=== PATIENT | male | born 1990 | race Caucasian/White ===

== ENCOUNTER 2016-09-23 13:33 | Emergency (ER) | payer OTHER, MEDICAID ==
[2016-09-23] MEDS ORDERED: BUPIVACAINE 0.5% PF 30 ML VIAL SUBQ STA (14:05)
[2016-09-23] MEDS ORDERED: TETANUS/DIPHTHERIA/PERTUSSIS 0.5 ML SYRINGE IM ONE ×2 (14:10→14:16)
[2016-09-23] MEDS ORDERED: BUPIVACAINE 0.5% PF 30 ML VIAL ONE (14:10)
--- NOTE | 2016-09-23 14:13 | ED Physician Documentation ---
History of Present Illness - Stated complaint Stated Complaint: HAND LAC - Chief complaint Chief Complaint: Ext Problem - Additonal information Additional information: hx from pt and friend/family lacerated tip 3rd finger L hand on weed whacker Review of Systems Skin: reports: Laceration (s) PD PAST MEDICAL HISTORY - Past Medical History Cardiovascular: None Respiratory: None Neuro: None Endocrine/Autoimmune: None Psych: None Musculoskeletal: None Other Past Medical History: autism spectrum - Past Surgical History Past Surgical History: No - Present Medications Home Medications: Ambulatory Orders Medication Instructions Recorded Confirmed Cephalexin [Keflex] 500 mg PO Q6H #28 capsule 09/23/16 - Allergies Allergies/Adverse Reactions: Allergies Allergy/AdvReac Type Severity Reaction Status Date / Time acetaminophen [From Vicodin] Allergy Unknown Verified 09/23/16 13:39 hydrocodone bitartrate * Allergy Unknown Verified 09/23/16 13:39 [From Vicodin] - Social History Does the pt smoke?: No Smoking Status: Never smoker Does the pt drink ETOH?: No Does the pt have substance abuse?: No - Immunizations Immunizations: TDAP >10years/unknown PD ED PE NORMAL - Vitals Vital signs reviewed: Yes - Extremities Extremities: Other (distal phalange 3rd finger L hand swollen tender with macerated lac to tip) Results - Vitals Vitals: Vital Signs - 24 hr 09/23/16 13:36 Temperature 36.8 C Heart Rate 73 Respiratory 26 H Rate Blood Pressure 140/90 H O2 Saturation 99 Oxygen O2 Source Room air - Rads (name of study) finger Radiology: See rad report (no fx) Procedures - Laceration (location) 3rd L finger Length in cm: 2.5 Wound type: Irregular, Other (ribbons of tissue) Wound Preparation: Irrigated copiously NS (by tech), Wound explored, To the base. No: FB identified Skin layer closure: Dermabond, Other (too tattered to suture) Complexity: Simple Departure - Departure Disposition: 01 Home, Self Care Clinical Impression: Finger laceration Qualifiers: Encounter type: initial encounter Qualified Code(s): S61.219A - Laceration without foreign body of unspecified finger without damage to nail, initial encounter Condition: Good Instructions: ED Laceration Hand Follow-Up: Kojo Lee MD [Primary Care Provider] - Prescriptions: Cephalexin [Keflex] 500 mg PO Q6H #28 capsule Comments: The glue will gradually flake off over about 2 weeks Motrin as needed for the pain This wound is at risk for infection We irrigated it very well and I prescribed prophylactic antibiotics - but there is still a risk for infection when cut by gardening equipment. Please return to the ER or see your PMD for any signs of developing infection such as increased redness, swelling, pain, discharge, streaking Please follow up with your PMD about your blood pressure - it was high today
[2016-09-23] MEDS ORDERED: LIDOCAINE-EPINEPH-TETRACAINE 3 ML SYRINGE TOP ONE (15:06)
--- NOTE | 2016-09-23 15:17 | XRAY Preliminary Report ---
Exam: XR Finger(s) LT IMPRESSION: No bony abnormality. [facility] SITE ID: [id number]
[2016-09-23] MEDS ORDERED: LIDOCAINE-EPINEPH-TETRACAINE 3 ML SYRINGE TOP STA (15:23)
--- NOTE | 2016-09-23 15:24 | XRAY Report ---
EXAM: LEFT THIRD DIGIT RADIOGRAPHY EXAM DATE: 09/23/2016 03:07 PM. CLINICAL HISTORY: Rufus jordan injury. COMPARISON: None. TECHNIQUE: 3 views. FINDINGS: Bones: Normal. No fracture or bone lesion. Joints: Normal. No subluxations. Soft Tissues: Laceration and edema lateral aspect tip of the finger. No radiopaque foreign body. IMPRESSION: No bony abnormality. [facility] Referring Provider Line: [phone] SITE ID: [id number]
[2016-09-23 16:17] VITALS: BP 137/70
== END 2016-09-23 16:16 | disposition home or self-care (01) ==
LOC: ED 13:33
DX: S61.213A Laceration without foreign body of left middle finger without damage to nail, initial encounter (principal); W20.8XXA Other cause of strike by thrown, projected or falling object, initial encounter; F84.0 Autistic disorder; Z23 Encounter for immunization
CPT/HCPCS: 12001; 73140; 90471; 99283

== ENCOUNTER 2018-09-24 10:40 | Outpatient (CLI) | payer OTHER, MEDICAID ==
--- NOTE | 2018-09-24 15:04 | XRAY Report ---
Reason: KNEE PAIN,RIGHT Procedure Date: 09/24/2018 Accession Number: [id number] / [id number] Procedure: WCP - Knee 2 View RT CPT Code: FULL RESULT: EXAM: RIGHT KNEE RADIOGRAPHY EXAM DATE: 09/24/2018 10:53 AM. CLINICAL HISTORY: KNEE PAIN,RIGHT. COMPARISON: None. TECHNIQUE: 2 views. FINDINGS: Bones: Normal. No fractures or bone lesions. Joints: Normal. No effusion. No subluxations. Soft Tissues: Normal. No soft tissue swelling. IMPRESSION: Normal knee radiography. [facility]
== END 2018-09-24 10:41 | disposition home or self-care (01) ==
LOC: DI.WCP 10:40
PROVIDERS: ATTEND Physician Assistant Medical
DX: M25.561 Pain in right knee (principal)

== ENCOUNTER 2022-08-31 09:47 | Emergency (ER) | payer MEDICAID, OTHER ==
[2022-08-31] MEDS ORDERED: CIPROFLOXACIN 250 MG TABLET PO STA (10:17)
--- OUTSIDE RECORDS SUMMARY | 2022-08-31 10:17 | EXTERNAL MEDICAL SUMMARY RPT | Continuity of Care Document ---
:1990 Author Organization [facility] Address [address] [place] [address] Phone Care Team Providers Name Role Phone Pete Esparza Unavailable Unavailable Allergies No information. Encounters No information. Functional Status No information. Immunizations No information. Medications No information. Problems date description facility 2022-06-19 00:00 Left knee pain [facility] Procedures No information. Results/Labs test date author facility value unit interpret ation Result panel 1 (unknown) (no (unknown) (unknown) (no value) (units (unk nown) date) unknown) (unknown) (no (unknown) (unknown) 06/19/22 (units (unkno wn) date) unknown) (unknown) (no (unknown) (unknown) 31yo man with (units ( unknown) date) severe learning unknown) disability presents with his father to for (unknown) (no (unknown) (unknown) Abdomen: Normal (units (unknown) date) bowel sounds, no unknown) tenderness, guarding, or rebound. No masses (unknown) (no (unknown) (unknown) Age/Sex: 31 / M (units (unknown) date) Date of Service: unknown) (unknown) (no (unknown) (unknown) Alert and (units (unkn own) date) oriented x3, well unknown) groomed, well nourished (unknown) (no (unknown) (unknown) Allergies (units (unkn own) date) unknown) (unknown) (no (unknown) (unknown) [place] (units ( unknown) date) [id number] unknown) (unknown) (no (unknown) (unknown) Attending Dr: (units ( unknown) date) Pete Esparza D.O. unknown) (unknown) (no (unknown) (unknown) BMI (units (unkno wn) date) 36.0-36.9,adult unknown) (unknown) (no (unknown) (unknown) Back pain (units (unkn own) date) unknown) (unknown) (no (unknown) (unknown) Brother Diabetes (units (unknown) date) mellitus unknown) (unknown) (no (unknown) (unknown) Cardio: Heart (units ( unknown) date) has regular rate unknown) and rhythm, no clicks, murmurs, rubs, or gallops (unknown) (no (unknown) (unknown) Chief Complaint (units (unknown) date) unknown) (unknown) (no (unknown) (unknown) Chief Complaint: (units (unknown) date) Physical exam unknown) (unknown) (no (unknown) (unknown) : 1990 (units (unknown) date) Acct:[id number] unknown) (unknown) (no (unknown) (unknown) Dept at (units (unkno wn) date) . unknown) (unknown) (no (unknown) (unknown) Details: (units (unkno wn) date) unknown) (unknown) (no (unknown) (unknown) Documented By: (units (unknown) date) Pete Esparza D.O. unknown) 06/19/22 0831 (unknown) (no (unknown) (unknown) Draft (units (unkno wn) date) unknown) (unknown) (no (unknown) (unknown) Ears: TMs pearly (units (unknown) date) and translucent unknown) with normal cone of light (unknown) (no (unknown) (unknown) Exam Narrative (units (unknown) date) unknown) (unknown) (no (unknown) (unknown) Exam Narrative: (units (unknown) date) unknown) (unknown) (no (unknown) (unknown) Exam (units (unkno wn) date) unknown) (unknown) (no (unknown) (unknown) Extremities: No (units (unknown) date) peripheral edema, unknown) no cyanosis or clubbing. (unknown) (no (unknown) (unknown) Eyes: PERRL, (units (u nknown) date) EOMI unknown) (unknown) (no (unknown) (unknown) Family History (units (unknown) date) (Reviewed unknown) 04/17/22 @ 00:02 by Ro Crespo MD) (unknown) (no (unknown) (unknown) Family Practice (units (unknown) date) Office Visit unknown) (unknown) (no (unknown) (unknown) [facility] ([facility] unknown) (unknown) (no (unknown) (unknown) Grandfather (units (un known) date) Diabetes mellitus unknown) (unknown) (no (unknown) (unknown) Grandmother (units (un known) date) Diabetes mellitus unknown) (unknown) (no (unknown) (unknown) HPI (units (unkno wn) date) unknown) (unknown) (no (unknown) (unknown) Head: NC/AT, (units (u nknown) date) unknown) (unknown) (no (unknown) (unknown) Healthy adult (units ( unknown) date) unknown) (unknown) (no (unknown) (unknown) Intake (units (unkno wn) date) unknown) (unknown) (no (unknown) (unknown) Knee pain, right (units (unknown) date) unknown) (unknown) (no (unknown) (unknown) Learning (units (unkno wn) date) disability unknown) (unknown) (no (unknown) (unknown) Loc: [facility] (units (unkno wn) date) unknown) (unknown) (no (unknown) (unknown) [id number] (units (unk nown) date) unknown) (unknown) (no (unknown) (unknown) Medical History (units (unknown) date) unknown) (unknown) (no (unknown) (unknown) Neck: Supple, no (units (unknown) date) lymphadenopathy, unknown) thyroid normal (unknown) (no (unknown) (unknown) No Known Drug (units ( unknown) date) Allergies Allergy unknown) (Verified 04/16/22 19:54) (unknown) (no (unknown) (unknown) Oropharynx: oral (units (unknown) date) mucosa pink and unknown) moist, structures are symmetrical (unknown) (no (unknown) (unknown) PFSH (units (unkno wn) date) unknown) (unknown) (no (unknown) (unknown) Patient: (units (unkno wn) date) Ravi Freedman unknown) A MR#: (unknown) (no (unknown) (unknown) Reason For Visit (units (unknown) date) unknown) (unknown) (no (unknown) (unknown) Resp: Lungs (units (un known) date) clear to unknown) auscultation bilaterally (unknown) (no (unknown) (unknown) Ravi has (units (un known) date) little sense of unknown) time and thinks they sometimes eat at midnight but (unknown) (no (unknown) (unknown) Signed By: (units (unk nown) date) unknown) (unknown) (no (unknown) (unknown) Skin: No (units (unkno wn) date) concerning unknown) rashes, lesions, or nevi noted on sun-exposed areas (unknown) (no (unknown) (unknown) Smoking Status: (units (unknown) date) Never smoker unknown) (unknown) (no (unknown) (unknown) This note may (units ( unknown) date) have been all or unknown) partially generated using voice recognition (unknown) (no (unknown) (unknown) Tobacco + (units (unkn own) date) Substance Use unknown) (unknown) (no (unknown) (unknown) Tobacco Status (units (unknown) date) unknown) (unknown) (no (unknown) (unknown) Visit Reasons: (units (unknown) date) Physical unknown) (unknown) (no (unknown) (unknown) alcohol intake: (units (unknown) date) never unknown) (unknown) (no (unknown) (unknown) father knows he (units (unknown) date) thinks this unknown) because Ravi thinks that anything after dark is (unknown) (no (unknown) (unknown) have occurred. (units (unknown) date) If there are any unknown) questions, please contact the Medical Records (unknown) (no (unknown) (unknown) him from doing (units (unknown) date) this. He knows is unknown) posture is very. The mother just a few (unknown) (no (unknown) (unknown) loss. He is very (units (unknown) date) dependent on his unknown) father for all arrangements of life, but can (unknown) (no (unknown) (unknown) may occur. (units (unk nown) date) Occasional unknown) wrong-word or 'sound-alike' substitutions may have (unknown) (no (unknown) (unknown) midnight. (units (unkn own) date) Ravi does like unknown) to walk in his back pain and knee pain do not keep (unknown) (no (unknown) (unknown) occurred due to (units (unknown) date) the inherent unknown) limitations of voice recognition software. Please (unknown) (no (unknown) (unknown) or (units (unkno wn) date) hepatosplenomegal unknown) y. (unknown) (no (unknown) (unknown) perform simple (units (unknown) date) ADLs for himself. unknown) His father says he is not eating well. (unknown) (no (unknown) (unknown) physical exam (units ( unknown) date) with concern unknown) today for back pain, right knee pain, and weight (unknown) (no (unknown) (unknown) read the note (units ( unknown) date) carefully and unknown) recognize, using context, where these substitutions (unknown) (no (unknown) (unknown) software. (units (unkn own) date) Although every unknown) effort is made to edit content, job putter up and ticket preparer errors (unknown) (no (unknown) (unknown) substance use (units ( unknown) date) type: does not unknown) use (unknown) (no (unknown) (unknown) weeks ago what (units (unknown) date) sounds like unknown) complications of obesity but the story is not clear. Result panel 2 (unknown) (no (unknown) (unknown) (no value) (units (unk nown) date) unknown) (unknown) (no (unknown) (unknown) 06/19/22 (units (unkno wn) date) unknown) (unknown) (no (unknown) (unknown) 31 yo male (units (unk nown) date) presents for unknown) annual physical. (unknown) (no (unknown) (unknown) 31yo man with (units ( unknown) date) severe learning unknown) disability presents with his father to for (unknown) (no (unknown) (unknown) Abdomen: Normal (units (unknown) date) bowel sounds, no unknown) tenderness, guarding, or rebound. No masses (unknown) (no (unknown) (unknown) Age/Sex: 31 / M (units (unknown) date) Date of Service: unknown) (unknown) (no (unknown) (unknown) Alert and (units (unkn own) date) oriented x3, well unknown) groomed, well nourished (unknown) (no (unknown) (unknown) Allergies (units (unkn own) date) unknown) (unknown) (no (unknown) (unknown) [place], [place] (units ( unknown) date) [id number] unknown) (unknown) (no (unknown) (unknown) Attending Dr: (units ( unknown) date) Pete Esparza D.O. unknown) (unknown) (no (unknown) (unknown) BMI (units (unkno wn) date) 36.0-36.9,adult unknown) (unknown) (no (unknown) (unknown) Back pain (units (unkn own) date) unknown) (unknown) (no (unknown) (unknown) Brother Diabetes (units (unknown) date) mellitus unknown) (unknown) (no (unknown) (unknown) Cardio: Heart (units ( unknown) date) has regular rate unknown) and rhythm, no clicks, murmurs, rubs, or gallops (unknown) (no (unknown) (unknown) Chief Complaint (units (unknown) date) unknown) (unknown) (no (unknown) (unknown) Chief Complaint: (units (unknown) date) Physical exam unknown) (unknown) (no (unknown) (unknown) : 1990 (units (unknown) date) Acct:[id number] unknown) (unknown) (no (unknown) (unknown) Dept at (units (unkno wn) date) . unknown) (unknown) (no (unknown) (unknown) Details: (units (unkno wn) date) unknown) (unknown) (no (unknown) (unknown) Documented By: (units (unknown) date) Pete Esparza D.O. unknown) 06/19/22 0831 (unknown) (no (unknown) (unknown) Draft (units (unkno wn) date) unknown) (unknown) (no (unknown) (unknown) Ears: TMs pearly (units (unknown) date) and translucent unknown) with normal cone of light (unknown) (no (unknown) (unknown) Exam Narrative (units (unknown) date) unknown) (unknown) (no (unknown) (unknown) Exam Narrative: (units (unknown) date) unknown) (unknown) (no (unknown) (unknown) Exam (units (unkno wn) date) unknown) (unknown) (no (unknown) (unknown) Extremities: No (units (unknown) date) peripheral edema, unknown) no cyanosis or clubbing. (unknown) (no (unknown) (unknown) Eyes: PERRL, (units (u nknown) date) EOMI unknown) (unknown) (no (unknown) (unknown) Family History (units (unknown) date) (Reviewed unknown) 04/17/22 @ 00:02 by Ro Crespo MD) (unknown) (no (unknown) (unknown) Family Practice (units (unknown) date) Office Visit unknown) (unknown) (no (unknown) (unknown) [facility] ([facility] unknown) (unknown) (no (unknown) (unknown) Grandfather (units (un known) date) Diabetes mellitus unknown) (unknown) (no (unknown) (unknown) Grandmother (units (un known) date) Diabetes mellitus unknown) (unknown) (no (unknown) (unknown) HPI (units (unkno wn) date) unknown) (unknown) (no (unknown) (unknown) Head: NC/AT, (units (u nknown) date) unknown) (unknown) (no (unknown) (unknown) Health (units (unkno wn) date) Management unknown) reviewed with patient: Yes (unknown) (no (unknown) (unknown) Health (units (unkno wn) date) Management unknown) (unknown) (no (unknown) (unknown) Healthy adult (units ( unknown) date) unknown) (unknown) (no (unknown) (unknown) Intake Note: (units (u nknown) date) unknown) (unknown) (no (unknown) (unknown) Intake performed (units (unknown) date) by: unknown) Juan De Jesus (unknown) (no (unknown) (unknown) Intake (units (unkno wn) date) unknown) (unknown) (no (unknown) (unknown) Intake- Clincial (units (unknown) date) Staff unknown) (unknown) (no (unknown) (unknown) Knee pain, right (units (unknown) date) unknown) (unknown) (no (unknown) (unknown) Learning (units (unkno wn) date) disability unknown) (unknown) (no (unknown) (unknown) Loc: [facility] (units (unkno wn) date) unknown) (unknown) (no (unknown) (unknown) [id number] (units (unk nown) date) unknown) (unknown) (no (unknown) (unknown) Medical History (units (unknown) date) unknown) (unknown) (no (unknown) (unknown) Neck: Supple, no (units (unknown) date) lymphadenopathy, unknown) thyroid normal (unknown) (no (unknown) (unknown) No Known Drug (units ( unknown) date) Allergies Allergy unknown) (Verified 06/19/22 08:45) (unknown) (no (unknown) (unknown) Oropharynx: oral (units (unknown) date) mucosa pink and unknown) moist, structures are symmetrical (unknown) (no (unknown) (unknown) PFSH (units (unkno wn) date) unknown) (unknown) (no (unknown) (unknown) Patient: (units (unkno wn) date) Ravi Freedman unknown) A MR#: (unknown) (no (unknown) (unknown) Reason For Visit (units (unknown) date) unknown) (unknown) (no (unknown) (unknown) Resp: Lungs (units (un known) date) clear to unknown) auscultation bilaterally (unknown) (no (unknown) (unknown) Ravi has (units (un known) date) little sense of unknown) time and thinks they sometimes eat at midnight but (unknown) (no (unknown) (unknown) Signed By: (units (unk nown) date) unknown) (unknown) (no (unknown) (unknown) Skin: No (units (unkno wn) date) concerning unknown) rashes, lesions, or nevi noted on sun-exposed areas (unknown) (no (unknown) (unknown) Smoking Status: (units (unknown) date) Never smoker unknown) (unknown) (no (unknown) (unknown) This note may (units ( unknown) date) have been all or unknown) partially generated using voice recognition (unknown) (no (unknown) (unknown) Tobacco + (units (unkn own) date) Substance Use unknown) (unknown) (no (unknown) (unknown) Tobacco Status (units (unknown) date) unknown) (unknown) (no (unknown) (unknown) Visit Reasons: (units (unknown) date) Physical unknown) (unknown) (no (unknown) (unknown) alcohol intake: (units (unknown) date) never unknown) (unknown) (no (unknown) (unknown) father knows he (units (unknown) date) thinks this unknown) because Ravi thinks that anything after dark is (unknown) (no (unknown) (unknown) have occurred. (units (unknown) date) If there are any unknown) questions, please contact the Medical Records (unknown) (no (unknown) (unknown) him from doing (units (unknown) date) this. He knows is unknown) posture is very. The mother just a few (unknown) (no (unknown) (unknown) loss. He is very (units (unknown) date) dependent on his unknown) father for all arrangements of life, but can (unknown) (no (unknown) (unknown) may occur. (units (unk nown) date) Occasional unknown) wrong-word or 'sound-alike' substitutions may have (unknown) (no (unknown) (unknown) midnight. (units (unkn own) date) Ravi does like unknown) to walk in his back pain and knee pain do not keep (unknown) (no (unknown) (unknown) occurred due to (units (unknown) date) the inherent unknown) limitations of voice recognition software. Please (unknown) (no (unknown) (unknown) or (units (unkno wn) date) hepatosplenomegal unknown) y. (unknown) (no (unknown) (unknown) perform simple (units (unknown) date) ADLs for himself. unknown) His father says he is not eating well. (unknown) (no (unknown) (unknown) physical exam (units ( unknown) date) with concern unknown) today for back pain, right knee pain, and weight (unknown) (no (unknown) (unknown) read the note (units ( unknown) date) carefully and unknown) recognize, using context, where these substitutions (unknown) (no (unknown) (unknown) software. (units (unkn own) date) Although every unknown) effort is made to edit content, job putter up and ticket preparer errors (unknown) (no (unknown) (unknown) substance use (units ( unknown) date) type: does not unknown) use (unknown) (no (unknown) (unknown) weeks ago what (units (unknown) date) sounds like unknown) complications of obesity but the story is not clear. Result panel 3 (unknown) (no (unknown) (unknown) (no value) (units (unk nown) date) unknown) (unknown) (no (unknown) (unknown) 06/19/22 (units (unkno wn) date) unknown) (unknown) (no (unknown) (unknown) 08:51 (units (unkno wn) date) unknown) (unknown) (no (unknown) (unknown) 31 yo male (units (unk nown) date) presents for unknown) annual physical. (unknown) (no (unknown) (unknown) 31yo man with (units ( unknown) date) severe learning unknown) disability presents for physical exam for special (unknown) (no (unknown) (unknown) Abdomen: Normal (units (unknown) date) bowel sounds, no unknown) tenderness, guarding, or rebound. No masses (unknown) (no (unknown) (unknown) Age/Sex: 31 / M (units (unknown) date) Date of Service: unknown) (unknown) (no (unknown) (unknown) Alert and (units (unkn own) date) oriented x3, well unknown) groomed, well nourished (unknown) (no (unknown) (unknown) Allergies (units (unkn own) date) unknown) (unknown) (no (unknown) (unknown) [place], [place] (units ( unknown) date) [id number] unknown) (unknown) (no (unknown) (unknown) Attending Dr: (units ( unknown) date) Pete Esparza D.O. unknown) (unknown) (no (unknown) (unknown) BMI (units (unkno wn) date) 36.0-36.9,adult unknown) (unknown) (no (unknown) (unknown) BMI 42.3 (units (unkno wn) date) unknown) (unknown) (no (unknown) (unknown) BP 110/80 (units (unkn own) date) unknown) (unknown) (no (unknown) (unknown) Back pain (units (unkn own) date) unknown) (unknown) (no (unknown) (unknown) Blood Pressure (units (unknown) date) Location Lt unknown) brachial (unknown) (no (unknown) (unknown) Brother Diabetes (units (unknown) date) mellitus unknown) (unknown) (no (unknown) (unknown) Cardio: Heart (units ( unknown) date) has regular rate unknown) and rhythm, no clicks, murmurs, rubs, or gallops (unknown) (no (unknown) (unknown) Chief Complaint (units (unknown) date) unknown) (unknown) (no (unknown) (unknown) Chief Complaint: (units (unknown) date) Physical exam unknown) (unknown) (no (unknown) (unknown) : 1990 (units (unknown) date) Acct:[id number] unknown) (unknown) (no (unknown) (unknown) Dept at (units (unkno wn) date) . unknown) (unknown) (no (unknown) (unknown) Details: (units (unkno wn) date) unknown) (unknown) (no (unknown) (unknown) Documented By: (units (unknown) date) Pete Esparza D.O. unknown) 06/19/22 0831 (unknown) (no (unknown) (unknown) Draft (units (unkno wn) date) unknown) (unknown) (no (unknown) (unknown) Ears: TMs pearly (units (unknown) date) and translucent unknown) with normal cone of light (unknown) (no (unknown) (unknown) Exam Narrative (units (unknown) date) unknown) (unknown) (no (unknown) (unknown) Exam Narrative: (units (unknown) date) unknown) (unknown) (no (unknown) (unknown) Exam (units (unkno wn) date) unknown) (unknown) (no (unknown) (unknown) Extremities: No (units (unknown) date) peripheral edema, unknown) no cyanosis or clubbing. (unknown) (no (unknown) (unknown) Eyes: PERRL, (units (u nknown) date) EOMI unknown) (unknown) (no (unknown) (unknown) Family History (units (unknown) date) (Reviewed unknown) 04/17/22 @ 00:02 by Ro Crespo MD) (unknown) (no (unknown) (unknown) Family Practice (units (unknown) date) Office Visit unknown) (unknown) (no (unknown) (unknown) [facility]units ([facility] date[facility] unknown) (unknown) (no (unknown) (unknown) Grandfather (units (un known) date) Diabetes mellitus unknown) (unknown) (no (unknown) (unknown) Grandmother (units (un known) date) Diabetes mellitus unknown) (unknown) (no (unknown) (unknown) HPI (units (unkno wn) date) unknown) (unknown) (no (unknown) (unknown) Head: NC/AT, (units (u nknown) date) unknown) (unknown) (no (unknown) (unknown) Health (units (unkno wn) date) Management unknown) reviewed with patient: Yes (unknown) (no (unknown) (unknown) Health (units (unkno wn) date) Management unknown) (unknown) (no (unknown) (unknown) Healthy adult (units ( unknown) date) unknown) (unknown) (no (unknown) (unknown) Height 5 ft 11 (units (unknown) date) in unknown) (unknown) (no (unknown) (unknown) Intake Note: (units (u nknown) date) unknown) (unknown) (no (unknown) (unknown) Intake performed (units (unknown) date) by: unknown) Juan De Jesus (unknown) (no (unknown) (unknown) Intake (units (unkno wn) date) unknown) (unknown) (no (unknown) (unknown) Intake- Clincial (units (unknown) date) Staff unknown) (unknown) (no (unknown) (unknown) Knee pain, right (units (unknown) date) unknown) (unknown) (no (unknown) (unknown) Learning (units (unkno wn) date) disability unknown) (unknown) (no (unknown) (unknown) Loc: [facility] (units (unkno wn) date) unknown) (unknown) (no (unknown) (unknown) [id number] (units (unk nown) date) unknown) (unknown) (no (unknown) (unknown) Medical History (units (unknown) date) unknown) (unknown) (no (unknown) (unknown) Medications (units (un known) date) unknown) (unknown) (no (unknown) (unknown) Neck: Supple, no (units (unknown) date) lymphadenopathy, unknown) thyroid normal (unknown) (no (unknown) (unknown) No Known Drug (units ( unknown) date) Allergies Allergy unknown) (Verified 06/19/22 08:45) (unknown) (no (unknown) (unknown) No Known Home (units ( unknown) date) Medications unknown) 04/19/20 [History Confirmed 06/19/22] (unknown) (no (unknown) (unknown) Oropharynx: oral (units (unknown) date) mucosa pink and unknown) moist, structures are symmetrical (unknown) (no (unknown) (unknown) Oxygen Delivery (units (unknown) date) Method room air unknown) (unknown) (no (unknown) (unknown) PFSH (units (unkno wn) date) unknown) (unknown) (no (unknown) (unknown) Patient: (units (unkno wn) date) Ravi Freedman unknown) A MR#: (unknown) (no (unknown) (unknown) Position Sitting (units (unknown) date) unknown) (unknown) (no (unknown) (unknown) Pulse 84 (units (unkno wn) date) unknown) (unknown) (no (unknown) (unknown) Pulse Oximetry (units (unknown) date) (%) 97 unknown) (unknown) (no (unknown) (unknown) Pulse Source (units (u nknown) date) Monitor unknown) (unknown) (no (unknown) (unknown) Reason For Visit (units (unknown) date) unknown) (unknown) (no (unknown) (unknown) Resp: Lungs (units (un known) date) clear to unknown) auscultation bilaterally (unknown) (no (unknown) (unknown) Signed By: (units (unk nown) date) unknown) (unknown) (no (unknown) (unknown) Skin: No (units (unkno wn) date) concerning unknown) rashes, lesions, or nevi noted on sun-exposed areas (unknown) (no (unknown) (unknown) Smoking Status: (units (unknown) date) Never smoker unknown) (unknown) (no (unknown) (unknown) Temp 97.1 F L (units ( unknown) date) unknown) (unknown) (no (unknown) (unknown) Temp Source (units (un known) date) Temporal Artery unknown) Scan (unknown) (no (unknown) (unknown) This note may (units ( unknown) date) have been all or unknown) partially generated using voice recognition (unknown) (no (unknown) (unknown) Tobacco + (units (unkn own) date) Substance Use unknown) (unknown) (no (unknown) (unknown) Tobacco Status (units (unknown) date) unknown) (unknown) (no (unknown) (unknown) Visit Reasons: (units (unknown) date) Physical unknown) (unknown) (no (unknown) (unknown) Vitals (units (unkno wn) date) unknown) (unknown) (no (unknown) (unknown) Weight 303 lb 6 (units (unknown) date) oz unknown) (unknown) (no (unknown) (unknown) alcohol intake: (units (unknown) date) never unknown) (unknown) (no (unknown) (unknown) father for all (units ( unknown) date) arrangements of unknown) life, but can perform simple ADLs for himself and (unknown) (no (unknown) (unknown) have occurred. (units (unknown) date) If there are any unknown) questions, please contact the Medical Records (unknown) (no (unknown) (unknown) is living on his (units (unknown) date) own. Ravi does unknown) like to walk in his back pain and knee (unknown) (no (unknown) (unknown) may occur. (units (unk nown) date) Occasional unknown) wrong-word or 'sound-alike' substitutions may have (unknown) (no (unknown) (unknown) occurred due to (units (unknown) date) the inherent unknown) limitations of voice recognition software. Please (unknown) (no (unknown) (unknown) olympics with (units ( unknown) date) concern today for unknown) left knee pain. He is very dependent on his (unknown) (no (unknown) (unknown) or (units (unkno wn) date) hepatosplenomegal unknown) y. (unknown) (no (unknown) (unknown) pain do not keep (units (unknown) date) him from doing unknown) this. (unknown) (no (unknown) (unknown) read the note (units ( unknown) date) carefully and unknown) recognize, using context, where these substitutions (unknown) (no (unknown) (unknown) software. (units (unkn own) date) Although every unknown) effort is made to edit content, job putter up and ticket preparer errors (unknown) (no (unknown) (unknown) substance use (units ( unknown) date) type: does not unknown) use Result panel 4 (unknown) (no (unknown) (unknown) (no value) (units (unk nown) date) unknown) (unknown) (no (unknown) (unknown) 06/19/22 (units (unkno wn) date) unknown) (unknown) (no (unknown) (unknown) 08:51 (units (unkno wn) date) unknown) (unknown) (no (unknown) (unknown) 31 yo male (units (unk nown) date) presents for unknown) annual physical. (unknown) (no (unknown) (unknown) 31yo man with (units ( unknown) date) severe learning unknown) disability presents for physical exam for special (unknown) (no (unknown) (unknown) Abdomen: Normal (units (unknown) date) bowel sounds, no unknown) tenderness, guarding, or rebound. No masses (unknown) (no (unknown) (unknown) Age/Sex: 31 / M (units (unknown) date) Date of Service: unknown) (unknown) (no (unknown) (unknown) Alert and (units (unkn own) date) oriented x3, well unknown) groomed, well nourished (unknown) (no (unknown) (unknown) Allergies (units (unkn own) date) unknown) (unknown) (no (unknown) (unknown) [place], [place] (units ( unknown) date) [id number] unknown) (unknown) (no (unknown) (unknown) Attending Dr: (units ( unknown) date) Pete Esparza D.O. unknown) (unknown) (no (unknown) (unknown) BMI (units (unkno wn) date) 36.0-36.9,adult unknown) (unknown) (no (unknown) (unknown) BMI 42.3 (units (unkno wn) date) unknown) (unknown) (no (unknown) (unknown) BP 110/80 (units (unkn own) date) unknown) (unknown) (no (unknown) (unknown) Back pain (units (unkn own) date) unknown) (unknown) (no (unknown) (unknown) Blood Pressure (units (unknown) date) Location Lt unknown) brachial (unknown) (no (unknown) (unknown) Brother Diabetes (units (unknown) date) mellitus unknown) (unknown) (no (unknown) (unknown) Cardio: Heart (units ( unknown) date) has regular rate unknown) and rhythm, no clicks, murmurs, rubs, or gallops (unknown) (no (unknown) (unknown) Chief Complaint (units (unknown) date) unknown) (unknown) (no (unknown) (unknown) Chief Complaint: (units (unknown) date) Physical exam unknown) (unknown) (no (unknown) (unknown) : 1990 (units (unknown) date) Acct:[id number] unknown) (unknown) (no (unknown) (unknown) Dept at (units (unkno wn) date) . unknown) (unknown) (no (unknown) (unknown) Details: (units (unkno wn) date) unknown) (unknown) (no (unknown) (unknown) Documented By: (units (unknown) date) Pete Esparza D.O. unknown) 06/19/22 0831 (unknown) (no (unknown) (unknown) Draft (units (unkno wn) date) unknown) (unknown) (no (unknown) (unknown) Ears: TMs pearly (units (unknown) date) and translucent unknown) with normal cone of light (unknown) (no (unknown) (unknown) Exam Narrative (units (unknown) date) unknown) (unknown) (no (unknown) (unknown) Exam Narrative: (units (unknown) date) unknown) (unknown) (no (unknown) (unknown) Exam (units (unkno wn) date) unknown) (unknown) (no (unknown) (unknown) Extremities: No (units (unknown) date) peripheral edema, unknown) no cyanosis or clubbing. (unknown) (no (unknown) (unknown) Eyes: PERRL, (units (u nknown) date) EOMI unknown) (unknown) (no (unknown) (unknown) Family History (units (unknown) date) (Reviewed unknown) 04/17/22 @ 00:02 by Ro Crespo MD) (unknown) (no (unknown) (unknown) Family Practice (units (unknown) date) Office Visit unknown) (unknown) (no (unknown) (unknown) [facility] ([facility]) (unknown) (no (unknown) (unknown) Grandfather (units (un known) date) Diabetes mellitus unknown) (unknown) (no (unknown) (unknown) Grandmother (units (un known) date) Diabetes mellitus unknown) (unknown) (no (unknown) (unknown) HPI (units (unkno wn) date) unknown) (unknown) (no (unknown) (unknown) Head: NC/AT, (units (u nknown) date) unknown) (unknown) (no (unknown) (unknown) Health (units (unkno wn) date) Management unknown) reviewed with patient: Yes (unknown) (no (unknown) (unknown) Health (units (unkno wn) date) Management unknown) (unknown) (no (unknown) (unknown) Healthy adult (units ( unknown) date) unknown) (unknown) (no (unknown) (unknown) Height 5 ft 11 (units (unknown) date) in unknown) (unknown) (no (unknown) (unknown) Intake Note: (units (u nknown) date) unknown) (unknown) (no (unknown) (unknown) Intake performed (units (unknown) date) by: unknown) Juan De Jesus (unknown) (no (unknown) (unknown) Intake (units (unkno wn) date) unknown) (unknown) (no (unknown) (unknown) Intake- Clincial (units (unknown) date) Staff unknown) (unknown) (no (unknown) (unknown) Knee pain, right (units (unknown) date) unknown) (unknown) (no (unknown) (unknown) Learning (units (unkno wn) date) disability unknown) (unknown) (no (unknown) (unknown) Loc: [facility] (units (unkno wn) date) unknown) (unknown) (no (unknown) (unknown) [id number] (units (unk nown) date) unknown) (unknown) (no (unknown) (unknown) Medical History (units (unknown) date) unknown) (unknown) (no (unknown) (unknown) Medications (units (un known) date) unknown) (unknown) (no (unknown) (unknown) Neck: Supple, no (units (unknown) date) lymphadenopathy, unknown) thyroid normal (unknown) (no (unknown) (unknown) No Known Drug (units ( unknown) date) Allergies Allergy unknown) (Verified 06/19/22 08:45) (unknown) (no (unknown) (unknown) No Known Home (units ( unknown) date) Medications unknown) 04/19/20 [History Confirmed 06/19/22] (unknown) (no (unknown) (unknown) Oropharynx: oral (units (unknown) date) mucosa pink and unknown) moist, structures are symmetrical (unknown) (no (unknown) (unknown) Oxygen Delivery (units (unknown) date) Method room air unknown) (unknown) (no (unknown) (unknown) PFSH (units (unkno wn) date) unknown) (unknown) (no (unknown) (unknown) Patient: (units (unkno wn) date) Ravi Freedman unknown) A MR#: (unknown) (no (unknown) (unknown) Position Sitting (units (unknown) date) unknown) (unknown) (no (unknown) (unknown) Pulse 84 (units (unkno wn) date) unknown) (unknown) (no (unknown) (unknown) Pulse Oximetry (units (unknown) date) (%) 97 unknown) (unknown) (no (unknown) (unknown) Pulse Source (units (u nknown) date) Monitor unknown) (unknown) (no (unknown) (unknown) Reason For Visit (units (unknown) date) unknown) (unknown) (no (unknown) (unknown) Resp: Lungs (units (un known) date) clear to unknown) auscultation bilaterally (unknown) (no (unknown) (unknown) Ravi does (units (u nknown) date) like to walk in unknown) his back pain and knee pain do not keep him from (unknown) (no (unknown) (unknown) Signed By: (units (unk nown) date) unknown) (unknown) (no (unknown) (unknown) Skin: No (units (unkno wn) date) concerning unknown) rashes, lesions, or nevi noted on sun-exposed areas (unknown) (no (unknown) (unknown) Smoking Status: (units (unknown) date) Never smoker unknown) (unknown) (no (unknown) (unknown) Temp 97.1 F L (units ( unknown) date) unknown) (unknown) (no (unknown) (unknown) Temp Source (units (un known) date) Temporal Artery unknown) Scan (unknown) (no (unknown) (unknown) This note may (units ( unknown) date) have been all or unknown) partially generated using voice recognition (unknown) (no (unknown) (unknown) Tobacco + (units (unkn own) date) Substance Use unknown) (unknown) (no (unknown) (unknown) Tobacco Status (units (unknown) date) unknown) (unknown) (no (unknown) (unknown) Visit Reasons: (units (unknown) date) Physical unknown) (unknown) (no (unknown) (unknown) Vitals (units (unkno wn) date) unknown) (unknown) (no (unknown) (unknown) Weight 303 lb 6 (units (unknown) date) oz unknown) (unknown) (no (unknown) (unknown) alcohol intake: (units (unknown) date) never unknown) (unknown) (no (unknown) (unknown) and chronic back (units (unknown) date) pain. He is very unknown) dependent on his father for all arrangements (unknown) (no (unknown) (unknown) doing this. (units (un known) date) unknown) (unknown) (no (unknown) (unknown) have occurred. (units (unknown) date) If there are any unknown) questions, please contact the Medical Records (unknown) (no (unknown) (unknown) may occur. (units (unk nown) date) Occasional unknown) wrong-word or 'sound-alike' substitutions may have (unknown) (no (unknown) (unknown) occurred due to (units (unknown) date) the inherent unknown) limitations of voice recognition software. Please (unknown) (no (unknown) (unknown) of life, but can (units (unknown) date) perform simple unknown) ADLs for himself and is living on his own. (unknown) (no (unknown) (unknown) olympics with (units ( unknown) date) concern today for unknown) acute left knee pain, chronic right knee pain, (unknown) (no (unknown) (unknown) or (units (unkno wn) date) hepatosplenomegal unknown) y. (unknown) (no (unknown) (unknown) read the note (units ( unknown) date) carefully and unknown) recognize, using context, where these substitutions (unknown) (no (unknown) (unknown) software. (units (unkn own) date) Although every unknown) effort is made to edit content, job putter up and ticket preparer errors (unknown) (no (unknown) (unknown) substance use (units ( unknown) date) type: does not unknown) use Result panel 5 (unknown) (no (unknown) (unknown) (no value) (units (unk nown) date) unknown) (unknown) (no (unknown) (unknown) (1) Knee pain, (units (unknown) date) right: unknown) (unknown) (no (unknown) (unknown) (2) Left knee (units ( unknown) date) pain: unknown) (unknown) (no (unknown) (unknown) (3) Back pain: (units (unknown) date) unknown) (unknown) (no (unknown) (unknown) 06/19/22 (units (unkno wn) date) unknown) (unknown) (no (unknown) (unknown) 08:51 (units (unkno wn) date) unknown) (unknown) (no (unknown) (unknown) 31 yo male (units (unk nown) date) presents for unknown) annual physical. (unknown) (no (unknown) (unknown) 31yo man with (units ( unknown) date) severe learning unknown) disability presents for physical exam for special (unknown) (no (unknown) (unknown) Abdomen: Normal (units (unknown) date) bowel sounds, no unknown) tenderness, guarding, or rebound. No masses (unknown) (no (unknown) (unknown) Age/Sex: 31 / M (units (unknown) date) Date of Service: unknown) (unknown) (no (unknown) (unknown) Alert and (units (unkn own) date) oriented x3, well unknown) groomed, well nourished (unknown) (no (unknown) (unknown) Allergies (units (unkn own) date) unknown) (unknown) (no (unknown) (unknown) [place], [place] (units ( unknown) date) [id number] unknown) (unknown) (no (unknown) (unknown) Assessment + (units (u nknown) date) Plan unknown) (unknown) (no (unknown) (unknown) Attending Dr: (units ( unknown) date) Pete Esparza D.O. unknown) (unknown) (no (unknown) (unknown) BMI (units (unkno wn) date) 36.0-36.9,adult unknown) (unknown) (no (unknown) (unknown) BMI 42.3 (units (unkno wn) date) unknown) (unknown) (no (unknown) (unknown) BP 110/80 (units (unkn own) date) unknown) (unknown) (no (unknown) (unknown) Back pain (units (unkn own) date) location: back unknown) pain in unspecified location Chronicity: (unknown) (no (unknown) (unknown) Back pain (units (unkn own) date) unknown) (unknown) (no (unknown) (unknown) Blood Pressure (units (unknown) date) Location Lt unknown) brachial (unknown) (no (unknown) (unknown) Brother Diabetes (units (unknown) date) mellitus unknown) (unknown) (no (unknown) (unknown) Cardio: Heart (units ( unknown) date) has regular rate unknown) and rhythm, no clicks, murmurs, rubs, or gallops (unknown) (no (unknown) (unknown) Chief Complaint (units (unknown) date) unknown) (unknown) (no (unknown) (unknown) Chief Complaint: (units (unknown) date) Physical exam unknown) (unknown) (no (unknown) (unknown) Chronicity: (units (un known) date) chronic Qualified unknown) Code(s): M25.561 - Pain in right knee; (unknown) (no (unknown) (unknown) : 1990 (units (unknown) date) Acct:[id number] unknown) (unknown) (no (unknown) (unknown) Dept at (units (unkno wn) date) . unknown) (unknown) (no (unknown) (unknown) Details: (units (unkno wn) date) unknown) (unknown) (no (unknown) (unknown) Documented By: (units (unknown) date) Pete Esparza D.O. unknown) 06/19/22 0831 (unknown) (no (unknown) (unknown) Dorsalgia, (units (unk nown) date) unspecified; unknown) G89.29 - Other chronic pain (unknown) (no (unknown) (unknown) Draft (units (unkno wn) date) unknown) (unknown) (no (unknown) (unknown) Ears: TMs pearly (units (unknown) date) and translucent unknown) with normal cone of light (unknown) (no (unknown) (unknown) Exam Narrative (units (unknown) date) unknown) (unknown) (no (unknown) (unknown) Exam Narrative: (units (unknown) date) unknown) (unknown) (no (unknown) (unknown) Exam (units (unkno wn) date) unknown) (unknown) (no (unknown) (unknown) Extremities: No (units (unknown) date) peripheral edema, unknown) no cyanosis or clubbing. (unknown) (no (unknown) (unknown) Eyes: PERRL, (units (u nknown) date) EOMI unknown) (unknown) (no (unknown) (unknown) Family History (units (unknown) date) (Reviewed unknown) 04/17/22 @ 00:02 by Ro Crespo MD) (unknown) (no (unknown) (unknown) Family Practice (units (unknown) date) Office Visit unknown) (unknown) (no (unknown) (unknown) [facility] (units ([facility]) date[facility] unknown) (unknown) (no (unknown) (unknown) G89.29 - Other (units (unknown) date) chronic pain unknown) (unknown) (no (unknown) (unknown) Grandfather (units (un known) date) Diabetes mellitus unknown) (unknown) (no (unknown) (unknown) Grandmother (units (un known) date) Diabetes mellitus unknown) (unknown) (no (unknown) (unknown) HPI (units (unkno wn) date) unknown) (unknown) (no (unknown) (unknown) Head: NC/AT, (units (u nknown) date) unknown) (unknown) (no (unknown) (unknown) Health (units (unkno wn) date) Management unknown) reviewed with patient: Yes (unknown) (no (unknown) (unknown) Health (units (unkno wn) date) Management unknown) (unknown) (no (unknown) (unknown) Healthy adult (units ( unknown) date) unknown) (unknown) (no (unknown) (unknown) Height 5 ft 11 (units (unknown) date) in unknown) (unknown) (no (unknown) (unknown) Intake Note: (units (u nknown) date) unknown) (unknown) (no (unknown) (unknown) Intake performed (units (unknown) date) by: unknown) Juan De Jesus (unknown) (no (unknown) (unknown) Intake (units (unkno wn) date) unknown) (unknown) (no (unknown) (unknown) Intake- Clincial (units (unknown) date) Staff unknown) (unknown) (no (unknown) (unknown) Knee pain, right (units (unknown) date) unknown) (unknown) (no (unknown) (unknown) Learning (units (unkno wn) date) disability unknown) (unknown) (no (unknown) (unknown) Left knee pain (units (unknown) date) unknown) (unknown) (no (unknown) (unknown) Loc: [facility] (units (unkno wn) date) unknown) (unknown) (no (unknown) (unknown) [id number] (units (unk nown) date) unknown) (unknown) (no (unknown) (unknown) Medical History (units (unknown) date) (Updated 06/19/22 unknown) @ 09:19 by Pete Esparza DO) (unknown) (no (unknown) (unknown) Medications (units (un known) date) unknown) (unknown) (no (unknown) (unknown) Neck: Supple, no (units (unknown) date) lymphadenopathy, unknown) thyroid normal (unknown) (no (unknown) (unknown) No Known Drug (units ( unknown) date) Allergies Allergy unknown) (Verified 06/19/22 08:45) (unknown) (no (unknown) (unknown) No Known Home (units ( unknown) date) Medications unknown) 04/19/20 [History Confirmed 06/19/22] (unknown) (no (unknown) (unknown) Orders: (units (unkno wn) date) unknown) (unknown) (no (unknown) (unknown) Oropharynx: oral (units (unknown) date) mucosa pink and unknown) moist, structures are symmetrical (unknown) (no (unknown) (unknown) Oxygen Delivery (units (unknown) date) Method room air unknown) (unknown) (no (unknown) (unknown) PFSH (units (unkno wn) date) unknown) (unknown) (no (unknown) (unknown) Patient: (units (unkno wn) date) Ravi Freedman unknown) A MR#: (unknown) (no (unknown) (unknown) Position Sitting (units (unknown) date) unknown) (unknown) (no (unknown) (unknown) Pulse 84 (units (unkno wn) date) unknown) (unknown) (no (unknown) (unknown) Pulse Oximetry (units (unknown) date) (%) 97 unknown) (unknown) (no (unknown) (unknown) Pulse Source (units (u nknown) date) Monitor unknown) (unknown) (no (unknown) (unknown) Qualifiers: (units (un known) date) unknown) (unknown) (no (unknown) (unknown) Reason For Visit (units (unknown) date) unknown) (unknown) (no (unknown) (unknown) Referral (units (unkno wn) date) Physical Therapy unknown) G89.29 - Other chronic pain, M25.561 - Pain in right (unknown) (no (unknown) (unknown) Referrals (units (unkn own) date) unknown) (unknown) (no (unknown) (unknown) Resp: Lungs (units (un known) date) clear to unknown) auscultation bilaterally (unknown) (no (unknown) (unknown) Ravi does (units (u nknown) date) like to walk in unknown) his back pain and knee pain do not keep him from (unknown) (no (unknown) (unknown) Signed By: (units (unk nown) date) unknown) (unknown) (no (unknown) (unknown) Skin: No (units (unkno wn) date) concerning unknown) rashes, lesions, or nevi noted on sun-exposed areas (unknown) (no (unknown) (unknown) Smoking Status: (units (unknown) date) Never smoker unknown) (unknown) (no (unknown) (unknown) Status: Acute (units ( unknown) date) unknown) (unknown) (no (unknown) (unknown) Temp 97.1 F L (units ( unknown) date) unknown) (unknown) (no (unknown) (unknown) Temp Source (units (un known) date) Temporal Artery unknown) Scan (unknown) (no (unknown) (unknown) This note may (units ( unknown) date) have been all or unknown) partially generated using voice recognition (unknown) (no (unknown) (unknown) Tobacco + (units (unkn own) date) Substance Use unknown) (unknown) (no (unknown) (unknown) Tobacco Status (units (unknown) date) unknown) (unknown) (no (unknown) (unknown) Visit Reasons: (units (unknown) date) Physical unknown) (unknown) (no (unknown) (unknown) Vitals (units (unkno wn) date) unknown) (unknown) (no (unknown) (unknown) Weight 303 lb 6 (units (unknown) date) oz unknown) (unknown) (no (unknown) (unknown) alcohol intake: (units (unknown) date) never unknown) (unknown) (no (unknown) (unknown) and chronic back (units (unknown) date) pain. He is very unknown) dependent on his father for all arrangements (unknown) (no (unknown) (unknown) chronic Back (units (u nknown) date) pain laterality: unknown) unspecified Qualified Code(s): M54.9 (unknown) (no (unknown) (unknown) doing this. (units (un known) date) unknown) (unknown) (no (unknown) (unknown) have occurred. (units (unknown) date) If there are any unknown) questions, please contact the Medical Records (unknown) (no (unknown) (unknown) knee, M25.562 - (units (unknown) date) Pain in left unknown) knee, M54.9 - Dorsalgia, unspecified (unknown) (no (unknown) (unknown) may occur. (units (unk nown) date) Occasional unknown) wrong-word or 'sound-alike' substitutions may have (unknown) (no (unknown) (unknown) occurred due to (units (unknown) date) the inherent unknown) limitations of voice recognition software. Please (unknown) (no (unknown) (unknown) of life, but can (units (unknown) date) perform simple unknown) ADLs for himself and is living on his own. (unknown) (no (unknown) (unknown) olympics with (units ( unknown) date) concern today for unknown) acute left knee pain, chronic right knee pain, (unknown) (no (unknown) (unknown) or (units (unkno wn) date) hepatosplenomegal unknown) y. (unknown) (no (unknown) (unknown) read the note (units ( unknown) date) carefully and unknown) recognize, using context, where these substitutions (unknown) (no (unknown) (unknown) software. (units (unkn own) date) Although every unknown) effort is made to edit content, job putter up and ticket preparer errors (unknown) (no (unknown) (unknown) substance use (units ( unknown) date) type: does not unknown) use Result panel 6 (unknown) (no (unknown) (unknown) (no value) (units (unk nown) date) unknown) (unknown) (no (unknown) (unknown) (1) Knee pain, (units (unknown) date) right: unknown) (unknown) (no (unknown) (unknown) (2) Left knee (units ( unknown) date) pain: unknown) (unknown) (no (unknown) (unknown) (3) Back pain: (units (unknown) date) unknown) (unknown) (no (unknown) (unknown) 06/19/22 (units (unkno wn) date) unknown) (unknown) (no (unknown) (unknown) 08:51 (units (unkno wn) date) unknown) (unknown) (no (unknown) (unknown) 31 yo male (units (unk nown) date) presents for unknown) annual physical. (unknown) (no (unknown) (unknown) 31yo man with (units ( unknown) date) severe learning unknown) disability presents for physical exam for special (unknown) (no (unknown) (unknown) Abdomen: Normal (units (unknown) date) bowel sounds, no unknown) tenderness, guarding, or rebound. No masses (unknown) (no (unknown) (unknown) Age/Sex: 31 / M (units (unknown) date) Date of Service: unknown) (unknown) (no (unknown) (unknown) Alert and (units (unkn own) date) oriented x3, well unknown) groomed, well nourished (unknown) (no (unknown) (unknown) Allergies (units (unkn own) date) unknown) (unknown) (no (unknown) (unknown) [place], [place] (units ( unknown) date) [id number] unknown) (unknown) (no (unknown) (unknown) Assessment + (units (u nknown) date) Plan unknown) (unknown) (no (unknown) (unknown) Attending Dr: (units ( unknown) date) Pete Esparza D.O. unknown) (unknown) (no (unknown) (unknown) BMI (units (unkno wn) date) 36.0-36.9,adult unknown) (unknown) (no (unknown) (unknown) BMI 42.3 (units (unkno wn) date) unknown) (unknown) (no (unknown) (unknown) BP 110/80 (units (unkn own) date) unknown) (unknown) (no (unknown) (unknown) Back pain (units (unkn own) date) laterality: unknown) unspecified Back pain location: back pain in (unknown) (no (unknown) (unknown) Back pain (units (unkn own) date) unknown) (unknown) (no (unknown) (unknown) Blood Pressure (units (unknown) date) Location Lt unknown) brachial (unknown) (no (unknown) (unknown) Brother Diabetes (units (unknown) date) mellitus unknown) (unknown) (no (unknown) (unknown) Cardio: Heart (units ( unknown) date) has regular rate unknown) and rhythm, no clicks, murmurs, rubs, or gallops (unknown) (no (unknown) (unknown) Chief Complaint (units (unknown) date) unknown) (unknown) (no (unknown) (unknown) Chief Complaint: (units (unknown) date) Physical exam unknown) (unknown) (no (unknown) (unknown) Chronicity: (units (un known) date) chronic Qualified unknown) Code(s): M25.561 - Pain in right knee; (unknown) (no (unknown) (unknown) : 1990 (units (unknown) date) Acct:[id number] unknown) (unknown) (no (unknown) (unknown) Dept at (units (unkno wn) date) . unknown) (unknown) (no (unknown) (unknown) Details: (units (unkno wn) date) unknown) (unknown) (no (unknown) (unknown) Documented By: (units (unknown) date) Pete Esparza D.O. unknown) 06/19/22 0831 (unknown) (no (unknown) (unknown) Draft (units (unkno wn) date) unknown) (unknown) (no (unknown) (unknown) Ears: TMs pearly (units (unknown) date) and translucent unknown) with normal cone of light (unknown) (no (unknown) (unknown) Exam Narrative (units (unknown) date) unknown) (unknown) (no (unknown) (unknown) Exam Narrative: (units (unknown) date) unknown) (unknown) (no (unknown) (unknown) Exam (units (unkno wn) date) unknown) (unknown) (no (unknown) (unknown) Extremities: No (units (unknown) date) peripheral edema, unknown) no cyanosis or clubbing. (unknown) (no (unknown) (unknown) Eyes: PERRL, (units (u nknown) date) EOMI unknown) (unknown) (no (unknown) (unknown) Family History (units (unknown) date) (Reviewed unknown) 04/17/22 @ 00:02 by Ro Crespo MD) (unknown) (no (unknown) (unknown) Family Practice (units (unknown) date) Office Visit unknown) (unknown) (no (unknown) (unknown) [facility] (units (unknown) date[facility] unknown) (unknown) (no (unknown) (unknown) G89.29 - Other (units (unknown) date) chronic pain unknown) (unknown) (no (unknown) (unknown) Grandfather (units (un known) date) Diabetes mellitus unknown) (unknown) (no (unknown) (unknown) Grandmother (units (un known) date) Diabetes mellitus unknown) (unknown) (no (unknown) (unknown) HPI (units (unkno wn) date) unknown) (unknown) (no (unknown) (unknown) Head: NC/AT, (units (u nknown) date) unknown) (unknown) (no (unknown) (unknown) Health (units (unkno wn) date) Management unknown) reviewed with patient: Yes (unknown) (no (unknown) (unknown) Health (units (unkno wn) date) Management unknown) (unknown) (no (unknown) (unknown) Healthy adult (units ( unknown) date) unknown) (unknown) (no (unknown) (unknown) Height 5 ft 11 (units (unknown) date) in unknown) (unknown) (no (unknown) (unknown) Intake Note: (units (u nknown) date) unknown) (unknown) (no (unknown) (unknown) Intake performed (units (unknown) date) by: unknown) Juan De Jesus (unknown) (no (unknown) (unknown) Intake (units (unkno wn) date) unknown) (unknown) (no (unknown) (unknown) Intake- Clincial (units (unknown) date) Staff unknown) (unknown) (no (unknown) (unknown) Knee pain, right (units (unknown) date) unknown) (unknown) (no (unknown) (unknown) Learning (units (unkno wn) date) disability unknown) (unknown) (no (unknown) (unknown) Left knee pain (units (unknown) date) unknown) (unknown) (no (unknown) (unknown) Left knee: (units (unk nown) date) Negative anterior unknown) and posterior drawer test, negative Ciera's, (unknown) (no (unknown) (unknown) Loc: [facility] (units (unkno wn) date) unknown) (unknown) (no (unknown) (unknown) [id number] (units (unk nown) date) unknown) (unknown) (no (unknown) (unknown) Medical History (units (unknown) date) (Updated 06/19/22 unknown) @ 09:19 by Pete Esparza DO) (unknown) (no (unknown) (unknown) Medications (units (un known) date) unknown) (unknown) (no (unknown) (unknown) Neck: Supple, no (units (unknown) date) lymphadenopathy, unknown) thyroid normal (unknown) (no (unknown) (unknown) No Known Drug (units ( unknown) date) Allergies Allergy unknown) (Verified 06/19/22 08:45) (unknown) (no (unknown) (unknown) No Known Home (units ( unknown) date) Medications unknown) 04/19/20 [History Confirmed 06/19/22] (unknown) (no (unknown) (unknown) Orders: (units (unkno wn) date) unknown) (unknown) (no (unknown) (unknown) Oropharynx: oral (units (unknown) date) mucosa pink and unknown) moist, structures are symmetrical (unknown) (no (unknown) (unknown) Oxygen Delivery (units (unknown) date) Method room air unknown) (unknown) (no (unknown) (unknown) PFSH (units (unkno wn) date) unknown) (unknown) (no (unknown) (unknown) Patient: (units (unkno wn) date) Ravi Freedman unknown) A MR#: (unknown) (no (unknown) (unknown) Position Sitting (units (unknown) date) unknown) (unknown) (no (unknown) (unknown) Pulse 84 (units (unkno wn) date) unknown) (unknown) (no (unknown) (unknown) Pulse Oximetry (units (unknown) date) (%) 97 unknown) (unknown) (no (unknown) (unknown) Pulse Source (units (u nknown) date) Monitor unknown) (unknown) (no (unknown) (unknown) Qualifiers: (units (un known) date) unknown) (unknown) (no (unknown) (unknown) Reason For Visit (units (unknown) date) unknown) (unknown) (no (unknown) (unknown) Referral (units (unkno wn) date) Physical Therapy unknown) G89.29 - Other chronic pain, M25.561 - Pain in right (unknown) (no (unknown) (unknown) Referrals (units (unkn own) date) unknown) (unknown) (no (unknown) (unknown) Resp: Lungs (units (un known) date) clear to unknown) auscultation bilaterally (unknown) (no (unknown) (unknown) Signed By: (units (unk nown) date) unknown) (unknown) (no (unknown) (unknown) Skin: No (units (unkno wn) date) concerning unknown) rashes, lesions, or nevi noted on sun-exposed areas (unknown) (no (unknown) (unknown) Smoking Status: (units (unknown) date) Never smoker unknown) (unknown) (no (unknown) (unknown) Status: Acute (units ( unknown) date) unknown) (unknown) (no (unknown) (unknown) Temp 97.1 F L (units ( unknown) date) unknown) (unknown) (no (unknown) (unknown) Temp Source (units (un known) date) Temporal Artery unknown) Scan (unknown) (no (unknown) (unknown) This note may (units ( unknown) date) have been all or unknown) partially generated using voice recognition (unknown) (no (unknown) (unknown) Tobacco + (units (unkn own) date) Substance Use unknown) (unknown) (no (unknown) (unknown) Tobacco Status (units (unknown) date) unknown) (unknown) (no (unknown) (unknown) Visit Reasons: (units (unknown) date) Physical unknown) (unknown) (no (unknown) (unknown) Vitals (units (unkno wn) date) unknown) (unknown) (no (unknown) (unknown) Weight 303 lb 6 (units (unknown) date) oz unknown) (unknown) (no (unknown) (unknown) alcohol intake: (units (unknown) date) never unknown) (unknown) (no (unknown) (unknown) and chronic back (units (unknown) date) pain. He is very unknown) dependent on his father for all arrangements (unknown) (no (unknown) (unknown) do not keep him (units (unknown) date) from doing this. unknown) (unknown) (no (unknown) (unknown) have occurred. (units (unknown) date) If there are any unknown) questions, please contact the Medical Records (unknown) (no (unknown) (unknown) his father's (units (u nknown) date) support. Ravi unknown) does like to walk and his back pain and knee pain (unknown) (no (unknown) (unknown) knee, M25.562 - (units (unknown) date) Pain in left unknown) knee, M54.9 - Dorsalgia, unspecified (unknown) (no (unknown) (unknown) may occur. (units (unk nown) date) Occasional unknown) wrong-word or 'sound-alike' substitutions may have (unknown) (no (unknown) (unknown) occurred due to (units (unknown) date) the inherent unknown) limitations of voice recognition software. Please (unknown) (no (unknown) (unknown) of life, but can (units (unknown) date) perform simple unknown) ADLs for himself and is living on his own with (unknown) (no (unknown) (unknown) olympics with (units ( unknown) date) concern today for unknown) acute left knee pain, chronic right knee pain, (unknown) (no (unknown) (unknown) or (units (unkno wn) date) hepatosplenomegal unknown) y. (unknown) (no (unknown) (unknown) read the note (units ( unknown) date) carefully and unknown) recognize, using context, where these substitutions (unknown) (no (unknown) (unknown) software. (units (unkn own) date) Although every unknown) effort is made to edit content, job putter up and ticket preparer errors (unknown) (no (unknown) (unknown) substance use (units ( unknown) date) type: does not unknown) use (unknown) (no (unknown) (unknown) tenderness and (units (unknown) date) hypertonicity unknown) tendons above the patella (unknown) (no (unknown) (unknown) unspecified (units (un known) date) location unknown) Chronicity: chronic Qualified Code(s): M54.9 - Dorsalgia, (unknown) (no (unknown) (unknown) unspecified; (units (u nknown) date) G89.29 - Other unknown) chronic pain Result panel 7 (unknown) (no (unknown) (unknown) (no value) (units (unk nown) date) unknown) (unknown) (no (unknown) (unknown) (1) Knee pain, (units (unknown) date) right: unknown) (unknown) (no (unknown) (unknown) (2) Left knee (units ( unknown) date) pain: unknown) (unknown) (no (unknown) (unknown) (3) Back pain: (units (unknown) date) unknown) (unknown) (no (unknown) (unknown) (4) Routine (units (un known) date) physical unknown) examination: (unknown) (no (unknown) (unknown) 06/19/22 1613 (units ( unknown) date) unknown) (unknown) (no (unknown) (unknown) 06/19/22 (units (unkno wn) date) unknown) (unknown) (no (unknown) (unknown) 08:51 (units (unkno wn) date) unknown) (unknown) (no (unknown) (unknown) 31 yo male (units (unk nown) date) presents for unknown) annual physical. (unknown) (no (unknown) (unknown) 31yo man with (units ( unknown) date) severe learning unknown) disability presents for physical exam for special (unknown) (no (unknown) (unknown) Abdomen: Normal (units (unknown) date) bowel sounds, no unknown) tenderness, guarding, or rebound. No masses (unknown) (no (unknown) (unknown) Age/Sex: 31 / M (units (unknown) date) Date of Service: unknown) (unknown) (no (unknown) (unknown) Alert and (units (unkn own) date) oriented x3, well unknown) groomed, well nourished (unknown) (no (unknown) (unknown) Allergies (units (unkn own) date) unknown) (unknown) (no (unknown) (unknown) [place], [place] (units ( unknown) date) [id number] unknown) (unknown) (no (unknown) (unknown) Assessment + Plan (units (unknown) date) unknown) (unknown) (no (unknown) (unknown) Attending Dr: (units ( unknown) date) Pete Esparza D.O. unknown) (unknown) (no (unknown) (unknown) BMI (units (unkno wn) date) 36.0-36.9,adult unknown) (unknown) (no (unknown) (unknown) BMI 42.3 (units (unkno wn) date) unknown) (unknown) (no (unknown) (unknown) BP 110/80 (units (unkn own) date) unknown) (unknown) (no (unknown) (unknown) Back pain (units (unkn own) date) laterality: unknown) unspecified Back pain location: back pain in (unknown) (no (unknown) (unknown) Back pain (units (unkn own) date) unknown) (unknown) (no (unknown) (unknown) Blood Pressure (units (unknown) date) Location Lt unknown) brachial (unknown) (no (unknown) (unknown) Brother Diabetes (units (unknown) date) mellitus unknown) (unknown) (no (unknown) (unknown) Cardio: Heart has (units (unknown) date) regular rate and unknown) rhythm, no clicks, murmurs, rubs, or gallops (unknown) (no (unknown) (unknown) Chief Complaint (units (unknown) date) unknown) (unknown) (no (unknown) (unknown) Chief Complaint: (units (unknown) date) Physical exam unknown) (unknown) (no (unknown) (unknown) Chronicity: acute (units (unknown) date) Qualified Code(s): unknown) M25.562 - Pain in left knee (unknown) (no (unknown) (unknown) Chronicity: (units (un known) date) chronic Qualified unknown) Code(s): M25.561 - Pain in right knee; (unknown) (no (unknown) (unknown) : 1990 (units (unknown) date) Acct:[id number] unknown) (unknown) (no (unknown) (unknown) Dept at (units (unkno wn) date) . unknown) (unknown) (no (unknown) (unknown) Despite these he (units (unknown) date) is still very unknown) active and we have cleared him for participation (unknown) (no (unknown) (unknown) Details: (units (unkno wn) date) unknown) (unknown) (no (unknown) (unknown) Documented By: (units (unknown) date) Pete Esparza D.O. unknown) 06/19/22 0831 (unknown) (no (unknown) (unknown) Ears: TMs pearly (units (unknown) date) and translucent unknown) with normal cone of light (unknown) (no (unknown) (unknown) Exam Narrative (units (unknown) date) unknown) (unknown) (no (unknown) (unknown) Exam Narrative: (units (unknown) date) unknown) (unknown) (no (unknown) (unknown) Exam (units (unkno wn) date) unknown) (unknown) (no (unknown) (unknown) Extremities: No (units (unknown) date) peripheral edema, unknown) no cyanosis or clubbing. (unknown) (no (unknown) (unknown) Eyes: PERRL, EOMI (units (unknown) date) unknown) (unknown) (no (unknown) (unknown) Family History (units (unknown) date) (Reviewed 04/17/22 unknown) @ 00:02 by Ro Crespo MD) (unknown) (no (unknown) (unknown) Family Practice (units (unknown) date) Office Visit unknown) (unknown) (no (unknown) (unknown) [facility]) (unknown) (no (unknown) (unknown) G89.29 - Other (units (unknown) date) chronic pain unknown) (unknown) (no (unknown) (unknown) Grandfather (units (un known) date) Diabetes mellitus unknown) (unknown) (no (unknown) (unknown) Grandmother (units (un known) date) Diabetes mellitus unknown) (unknown) (no (unknown) (unknown) HPI (units (unkno wn) date) unknown) (unknown) (no (unknown) (unknown) Head: NC/AT, (units (u nknown) date) unknown) (unknown) (no (unknown) (unknown) Health Management (units (unknown) date) reviewed with unknown) patient: Yes (unknown) (no (unknown) (unknown) Health Management (units (unknown) date) unknown) (unknown) (no (unknown) (unknown) Healthy adult (units ( unknown) date) unknown) (unknown) (no (unknown) (unknown) Height 5 ft 11 in (units (unknown) date) unknown) (unknown) (no (unknown) (unknown) Intake Note: (units (u nknown) date) unknown) (unknown) (no (unknown) (unknown) Intake performed (units (unknown) date) by: unknown) Juan De Jesus (unknown) (no (unknown) (unknown) Intake (units (unkno wn) date) unknown) (unknown) (no (unknown) (unknown) Intake- Clincial (units (unknown) date) Staff unknown) (unknown) (no (unknown) (unknown) Knee pain, right (units (unknown) date) unknown) (unknown) (no (unknown) (unknown) Learning (units (unkno wn) date) disability unknown) (unknown) (no (unknown) (unknown) Left knee pain (units (unknown) date) unknown) (unknown) (no (unknown) (unknown) Left knee: (units (unk nown) date) Negative anterior unknown) and posterior drawer test, negative Ciera's, (unknown) (no (unknown) (unknown) Loc: [facility] (units (unkno wn) date) unknown) (unknown) (no (unknown) (unknown) [id number] (units (unk nown) date) unknown) (unknown) (no (unknown) (unknown) Medical History (units (unknown) date) (Updated 06/19/22 unknown) @ 16:12 by Pete Esparza DO) (unknown) (no (unknown) (unknown) Medications (units (un known) date) unknown) (unknown) (no (unknown) (unknown) Neck: Supple, no (units (unknown) date) lymphadenopathy, unknown) thyroid normal (unknown) (no (unknown) (unknown) No Known Drug (units ( unknown) date) Allergies Allergy unknown) (Verified 06/19/22 08:45) (unknown) (no (unknown) (unknown) No Known Home (units ( unknown) date) Medications unknown) 04/19/20 [History Confirmed 06/19/22] (unknown) (no (unknown) (unknown) Orders: (units (unkno wn) date) unknown) (unknown) (no (unknown) (unknown) Oropharynx: oral (units (unknown) date) mucosa pink and unknown) moist, structures are symmetrical (unknown) (no (unknown) (unknown) Oxygen Delivery (units (unknown) date) Method room air unknown) (unknown) (no (unknown) (unknown) PFSH (units (unkno wn) date) unknown) (unknown) (no (unknown) (unknown) Patient referred (units (unknown) date) to physical unknown) therapy for these musculoskeletal complaints. (unknown) (no (unknown) (unknown) Patient: (units (unkno wn) date) Ravi Freedman unknown) MR#: (unknown) (no (unknown) (unknown) Plan (units (unkno wn) date) unknown) (unknown) (no (unknown) (unknown) Position Sitting (units (unknown) date) unknown) (unknown) (no (unknown) (unknown) Pulse 84 (units (unkno wn) date) unknown) (unknown) (no (unknown) (unknown) Pulse Oximetry (units (unknown) date) (%) 97 unknown) (unknown) (no (unknown) (unknown) Pulse Source (units (u nknown) date) Monitor unknown) (unknown) (no (unknown) (unknown) Qualifiers: (units (un known) date) unknown) (unknown) (no (unknown) (unknown) Reason For Visit (units (unknown) date) unknown) (unknown) (no (unknown) (unknown) Referral Physical (units (unknown) date) Therapy G89.29 - unknown) Other chronic pain, M25.561 - Pain in right (unknown) (no (unknown) (unknown) Referrals (units (unkn own) date) unknown) (unknown) (no (unknown) (unknown) Resp: Lungs clear (units (unknown) date) to auscultation unknown) bilaterally (unknown) (no (unknown) (unknown) Signed By: (units (unk nown) date) <Electronically unknown) signed by Pete Esparza D.O.> (unknown) (no (unknown) (unknown) Signed (units (unkno wn) date) unknown) (unknown) (no (unknown) (unknown) Skin: No (units (unkno wn) date) concerning rashes, unknown) lesions, or nevi noted on sun-exposed areas (unknown) (no (unknown) (unknown) Smoking Status: (units (unknown) date) Never smoker unknown) (unknown) (no (unknown) (unknown) Status: Acute (units ( unknown) date) unknown) (unknown) (no (unknown) (unknown) Temp 97.1 F L (units ( unknown) date) unknown) (unknown) (no (unknown) (unknown) Temp Source (units (un known) date) Temporal Artery unknown) Scan (unknown) (no (unknown) (unknown) This note may (units ( unknown) date) have been all or unknown) partially generated using voice recognition (unknown) (no (unknown) (unknown) Tobacco + (units (unkn own) date) Substance Use unknown) (unknown) (no (unknown) (unknown) Tobacco Status (units (unknown) date) unknown) (unknown) (no (unknown) (unknown) Visit Reasons: (units (unknown) date) Physical unknown) (unknown) (no (unknown) (unknown) Vitals (units (unkno wn) date) unknown) (unknown) (no (unknown) (unknown) Weight 303 lb 6 (units (unknown) date) oz unknown) (unknown) (no (unknown) (unknown) alcohol intake: (units (unknown) date) never unknown) (unknown) (no (unknown) (unknown) and chronic back (units (unknown) date) pain. He is very unknown) dependent on his father for all arrangements (unknown) (no (unknown) (unknown) do not keep him (units (unknown) date) from doing this. unknown) (unknown) (no (unknown) (unknown) have occurred. If (units (unknown) date) there are any unknown) questions, please contact the Medical Records (unknown) (no (unknown) (unknown) his father's (units (u nknown) date) support. Ravi unknown) does like to walk and his back pain and knee pain (unknown) (no (unknown) (unknown) in special (units (unk nown) date) Olympics. unknown) (unknown) (no (unknown) (unknown) knee, M25.562 - (units (unknown) date) Pain in left knee, unknown) M54.9 - Dorsalgia, unspecified (unknown) (no (unknown) (unknown) may occur. (units (unk nown) date) Occasional unknown) wrong-word or 'sound-alike' substitutions may have (unknown) (no (unknown) (unknown) occurred due to (units (unknown) date) the inherent unknown) limitations of voice recognition software. Please (unknown) (no (unknown) (unknown) of life, but can (units (unknown) date) perform simple unknown) ADLs for himself and is living on his own with (unknown) (no (unknown) (unknown) olympics with (units ( unknown) date) concern today for unknown) acute left knee pain, chronic right knee pain, (unknown) (no (unknown) (unknown) or (units (unkno wn) date) hepatosplenomegaly unknown) . (unknown) (no (unknown) (unknown) read the note (units ( unknown) date) carefully and unknown) recognize, using context, where these substitutions (unknown) (no (unknown) (unknown) software. (units (unkn own) date) Although every unknown) effort is made to edit content, job putter up and ticket preparer errors (unknown) (no (unknown) (unknown) substance use (units ( unknown) date) type: does not use unknown) (unknown) (no (unknown) (unknown) tenderness and (units (unknown) date) hypertonicity unknown) tendons above the patella (unknown) (no (unknown) (unknown) unspecified (units (un known) date) location unknown) Chronicity: chronic Qualified Code(s): M54.9 - Dorsalgia, (unknown) (no (unknown) (unknown) unspecified; (units (u nknown) date) G89.29 - Other unknown) chronic pain Social History date description facility 2022-06-19 00:00 Never smoked tobacco ([facility] Vital Signs date measurement value units 2022-06-19 00:00 BMI 42.3 kg/m2 2022-06-19 00:00 BP_diastolic 80 mmHg 2022-06-19 00:00 BP_systolic 110 mmHg 2022-06-19 00:00 heart_rate 84 /min 2022-06-19 00:00 height_metric 180.34 cm 2022-06-19 00:00 height_standard 71 in 2022-06-19 00:00 o2_saturation 97 % 2022-06-19 00:00 temperature_metric 36.17 C 2022-06-19 00:00 temperature_standard 97.1 F 2022-06-19 00:00 weight_metric 137.6 kg 2022-06-19 00:00 weight_standard 303.36 lb
--- NOTE | 2022-08-31 10:18 | ED Physician Documentation ---
PD HPI LOWER EXT INJURY - Stated complaint Stated Complaint: RT FT INJ/NAIL THROUGH FOOT - Chief complaint Chief Complaint: Wound - History obtained from History obtained from: Patient, Family - Additional information Additional information: 32-year-old gentleman accompanied by his father. Yesterday he stepped on a nail to the bottom of the right foot through shoes and has increasing pain there. No fevers. He is up-to-date on tetanus. PD PAST MEDICAL HISTORY - Past Medical History Cardiovascular: None Respiratory: None Endocrine/Autoimmune: None Psych: None Musculoskeletal: None - Past Surgical History Past Surgical History: No - Present Medications Home Medications: Ambulatory Orders Medication Instructions Recorded Confirmed cephALEXin [Keflex] 500 mg PO Q6H #28 capsule 09/23/16 Ciprofloxacin HCl [Cipro] 500 mg PO BID #14 tablet 08/31/22 - Allergies Allergies/Adverse Reactions: Allergies Allergy/AdvReac Type Severity Reaction Status Date / Time acetaminophen [From Vicodin] Allergy Unknown Verified 08/31/22 10:07 hydrocodone bitartrate * Allergy Unknown Verified 08/31/22 10:07 [From Vicodin] - Social History Does the pt smoke?: No Smoking Status: Never smoker Does the pt drink ETOH?: No Does the pt have substance abuse?: No - Immunizations Immunizations: TDAP >10years/unknown PD ED PE NORMAL - Vitals Vital signs reviewed: Yes - General General: No acute distress, Other (Developmental delay, much of the history is from the dad.) - Derm Derm: Normal color, Warm and dry - Extremities Extremities: Other (Puncture wound on the bottom of the foot, right, near the second metatarsal head with surrounding tenderness. No drainage or cellulitis.) Results - Vitals Vitals: Vital Signs - 24 hr 08/31/22 08/31/22 10:03 11:06 Temperature 36.6 C 36.8 C Heart Rate 88 80 Respiratory 18 20 Rate Blood Pressure 127/84 H 136/86 H O2 Saturation 98 98 Oxygen O2 Source Room air - Rads (name of study) Three-view x-ray of the right foot is unremarkable Relevant Findings:: Final report received, EMP independent interpretation of test PD Medical Decision Making - ED course ED course: 32-year-old gentleman with some developmental delay stepped on a nail yesterday and has pain. Concern for early infection and started on Cipro. He is up-to-date on tetanus and x-rays were negative. Departure - Departure Disposition: 01 Home, Self Care Clinical Impression: Puncture wound of plantar aspect of right foot Condition: Good Record reviewed to determine appropriate education?: Yes Instructions: ED Wound Puncture General Prescriptions: Ciprofloxacin HCl [Cipro] 500 mg PO BID #14 tablet Comments: I do not see any evidence on the x-ray that it hit the bone. That said with increasing pain were worried about an early infection. Ibuprofen as needed for pain and keep it elevated is much as possible. Fill the antibiotic prescription, he should take the second dose tonight. If pain is worsening, if he develops fevers or increased redness please return for reevaluation. Otherwise plan to follow-up with your primary care physician in a few days, call tomorrow for an appointment. Discharge Date/Time: 08/31/22 11:08
[2022-08-31 11:08] VITALS: BP 136/86
--- NOTE | 2022-08-31 14:16 | XRAY Report ---
PROCEDURE: Foot 3 View RT INDICATIONS: Trauma TECHNIQUE: 3 views of the foot were acquired. COMPARISON: None. FINDINGS: Bones: No fractures or dislocations. No suspicious bony lesions. Soft tissues: No suspicious soft tissue calcifications or masses. IMPRESSION: Unremarkable right foot radiographs Reviewed by: Brijesh Huerta MD on 08/31/2022 1:15 PM [facility]DT Approved by: Brijesh Huerta MD on 08/31/2022 1:15 PM AKDT Station ID: [id number]
== END 2022-08-31 11:08 | disposition home or self-care (01) ==
LOC: ED 09:47
DX: S91.331A Puncture wound without foreign body, right foot, initial encounter (principal); W45.0XXA Nail entering through skin, initial encounter
CPT/HCPCS: 73630; 99283; 99284; A9270